=== PATIENT | female | born 1950 | race Caucasian/White ===

== ENCOUNTER 2017-08-01 10:12 | Emergency (ER) | payer BC | END 2017-08-01 12:40 | disposition home or self-care (01) | LOC: FTE 10:12 | DX: S62.112A Displaced fracture of triquetrum [cuneiform] bone, left wrist, initial encounter for closed fracture (principal); I10 Essential (primary) hypertension; W18.39XA Other fall on same level, initial encounter; Y92.9 Unspecified place or not applicable; Z79.82 Long term (current) use of aspirin | CPT/HCPCS: 29125; 71045; 71100; 73110-LT; 99284-25 ==